=== PATIENT | male | born 1995 | race Caucasian/White ===

== ENCOUNTER 2017-02-06 12:08 | Emergency (ER) | payer OTHER ==
[~2017-02-06] VITALS: Ht 182.9 cm; Wt 70.0 kg
[2017-02-06 12:09] VITALS: BP 150/86; PULSE 88; RESP 16; TEMP 98.5; O2SAT 98
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
[2017-02-06 13:20] LABS: BASOPHIL % 0.3 % (0.0-2.0); EOSINOPHIL # 0.1 TH/MM3 (0-0.4); EOSINOPHIL % 0.8 % (0.0-4.0); HEMATOCRIT 46.3 % (39.0-51.0); HEMO FLAGS DIFF FINAL; LYMPH % 37.8 % (9.0-44.0); LYMPHOCYTE # 3.6 TH/MM3 (1.0-4.8); MEAN CELL VOLUME 86.8 FL (80.0-100.0); MEAN CORPUSCULAR HEMOGLOBIN 29.8 PG (27.0-34.0); MEAN CORPUSCULAR HGB CONC 34.3 % (32.0-36.0); MONO % 8.6 % (0.0-8.0); NEUT % 52.5 % (16.0-70.0); PLATELET COUNT 231 TH/MM3 (150-450); RED BLOOD COUNT 5.34 MIL/MM3 (4.50-5.90); RED CELL DISTRIBUTION WIDTH 12.9 % (11.6-17.2); WHITE BLOOD COUNT 9.6 TH/MM3 (4.0-11.0)
[2017-02-06 13:36] LABS: ANION GAP 6 MEQ/L (5-15); AST (GOT) 14 U/L (15-39); BLOOD UREA NITROGEN 15 MG/DL (7-18); CHLORIDE 109 MEQ/L (98-107); GLOMERULAR FILTRATION RATE 94 ML/MIN (>89); POTASSIUM 3.9 MEQ/L (3.5-5.1); SODIUM (NA) 140 MEQ/L (136-145)
[2017-02-06 13:40] LABS: ALKALINE PHOSPHATASE 64 U/L (45-117); ALT (GPT) 20 U/L (9-52); TOTAL BILIRUBIN ADULT 0.6 MG/DL (0.2-1.0)
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
== END 2017-02-06 15:15 | disposition left against medical advice (07) ==
LOC: NEPD 12:08 → NEPB 15:15
DX: R51 Headache (principal); F32.9 Major depressive disorder, single episode, unspecified
CPT/HCPCS: 80053; 85025; 99283

== ENCOUNTER 2017-03-13 18:29 | Inpatient (IN) | payer OTHER ==
[~2017-03-13] VITALS: Ht 170.2 cm; Wt 66.0 kg
[2017-03-13 18:31] VITALS: BP 145/88; PULSE 96; RESP 20; TEMP 97.6; O2SAT 99
[2017-03-13 19:34] VITALS: BP 134/74; PULSE 68; RESP 18; TEMP 98.4
--- NOTE | 2017-03-13 20:19 | PD ---
HPI Chief Complaint: Suicide Ideation/Attempt Time Seen by Provider: 20:18 Travel History International Travel<30 days: No Contact w/Intl Traveler<30days: No Traveled to known affect area: No History of Present Illness HPI 22-year-old male that presents to the ED for evaluation of suicidal ideation. Patient comes here voluntarily for this. Patient states that he is a chronic history depression and he is to take medications for it was a year ago but he had a lot of side effects of he stopped taking them. He denies any plan. He denies any chest pain or shortness of breath. Other medical issues. No fevers chills or sweats. No allergies to medication. Has not seen anybody for this recently. PFSH Past Medical History Blood Disorders: No Depression: Yes Insomnia: Yes Social History Alcohol Use: No Tobacco Use: No Substance Use: Yes (marijuanna daily, today) Allergies-Medications (Allergen,Severity, Reaction): Coded Allergies: No Known Allergies (Unverified , 03/11/15) Reported Meds & Prescriptions Reported Meds & Active Scripts Active No Active Prescriptions or Reported Medications Review of Systems Except as stated in HPI: all other systems reviewed are Neg Physical Exam Narrative GENERAL: SKIN: Warm and dry. HEAD: Atraumatic. Normocephalic. EYES: Pupils equal and round. No scleral icterus. No injection or drainage. ENT: No nasal bleeding or discharge. Mucous membranes pink and moist. Tongue is midline. No uvula deviation. NECK: Trachea midline. No JVD. CARDIOVASCULAR: Regular rate and rhythm. No murmurs, S3, S4. RESPIRATORY: No accessory muscle use. Clear to auscultation. Breath sounds equal bilaterally. GASTROINTESTINAL: Abdomen soft, non-tender, nondistended. Hepatic and splenic margins not palpable. MUSCULOSKELETAL: Extremities without clubbing, cyanosis, or edema. No obvious deformities. Full range of motion of the upper and lower extremities bilaterally. 2+ pulses bilaterally. NEUROLOGICAL: Awake and alert. No obvious cranial nerve deficits. Motor grossly within normal limits. Five out of 5 muscle strength in the arms and legs. Normal speech. PSYCHIATRIC: Appropriate mood and affect; insight and judgment normal. Data Data Last Documented VS Vital Signs Date Time Temp Pulse Resp B/P Pulse Ox O2 Delivery O2 Flow Rate FiO2 03/13/17 19:34 98.4 68 18 134/74 Room Air 03/13/17 18:31 99 Orders Complete Blood Count With Diff (03/13/17 20:06) Comprehensive Metabolic Panel (03/13/17 20:06) Psych Screen (03/13/17 20:06) Drug Screen, Random Urine (03/13/17 20:06) Alcohol (Ethanol) (03/13/17 20:06) MDM Medical Decision Making Medical Screen Exam Complete: Yes Emergency Medical Condition: Yes Medical Record Reviewed: Yes Differential Diagnosis Depression versus suicidal ideation versus anxiety versus adjustment disorder versus mood disorder versus bipolar disorder versus schizophrenia versus paranoid disorder versus psychosis versus substance abuse versus alcohol abuse versus alcohol induced psychosis versus homicidality addition versus cutting versus personality disorder Narrative Course 22-year-old male that presents to the ED for evaluation of psychiatric illness. No sign of acute medical distress. Labs were drawn. Patient was medically cleared. Okay to be seen by psych. Mental health screening was discussed with the patient. Diagnosis Primary Impression: Depression Qualified Code: F33.1 - Moderate episode of recurrent major depressive disorder Scripts No Active Prescriptions or Reported Meds Jonathan Boggs Mar 13, 2017 20:18
[2017-03-13 21:05] LABS: AUTOMATED NEUTROPHIL # 5.9 TH/MM3 (1.8-7.7); BASOPHIL # 0.1 TH/MM3 (0-0.2); BASOPHIL % 0.5 % (0.0-2.0); EOSINOPHIL # 0.1 TH/MM3 (0-0.4); EOSINOPHIL % 0.9 % (0.0-4.0); HEMATOCRIT 40.8 % (39.0-51.0); HEMO FLAGS DIFF FINAL; LYMPH % 34.7 % (9.0-44.0); LYMPHOCYTE # 3.7 TH/MM3 (1.0-4.8); MEAN CORPUSCULAR HEMOGLOBIN 30.3 PG (27.0-34.0); MEAN CORPUSCULAR HGB CONC 34.4 % (32.0-36.0); MONO % 8.3 % (0.0-8.0); NEUT % 55.6 % (16.0-70.0); PLATELET COUNT 190 TH/MM3 (150-450); RED BLOOD COUNT 4.64 MIL/MM3 (4.50-5.90); RED CELL DISTRIBUTION WIDTH 13.1 % (11.6-17.2); WHITE BLOOD COUNT 10.7 TH/MM3 (4.0-11.0)
[2017-03-13 21:06] LABS: AMPHETAMINE, URINE NEG (NEG); BARBITURATES, URINE NEG (NEG); COCAINE, URINE NEG (NEG)
[2017-03-13 21:22] LABS: ANION GAP 6 MEQ/L (5-15); AST (GOT) 9 U/L (15-39); BICARBONATE 26.6 MEQ/L (21.0-32.0); BLOOD UREA NITROGEN 14 MG/DL (7-18); CHLORIDE 106 MEQ/L (98-107); GLOMERULAR FILTRATION RATE 87 ML/MIN (>89); POTASSIUM 3.7 MEQ/L (3.5-5.1); SODIUM (NA) 139 MEQ/L (136-145)
[2017-03-13 21:24] LABS: ALT (GPT) 14 U/L (9-52)
[2017-03-13 21:25] LABS: ALKALINE PHOSPHATASE 54 U/L (45-117); TOTAL BILIRUBIN ADULT 0.8 MG/DL (0.2-1.0)
[2017-03-13 22:14] VITALS: BP 138/83; PULSE 63; RESP 18; TEMP 98; O2SAT 100
[2017-03-14 02:04] VITALS: BP 119/63; PULSE 59; RESP 18; O2SAT 99
[2017-03-14] MEDS ORDERED: ALUMINUM/MAGNESIUM/SIMETH 30 ML CUP PO PRN (05:15)
[2017-03-14] MEDS ORDERED: LORazepam 2 MG/ML VIAL IM PRN (05:15)
[2017-03-14] MEDS ORDERED: MAGNESIUM HYDROXIDE SUSP 30 ML CUP PO PRN (05:15)
[2017-03-14] MEDS ORDERED: ACETAMINOPHEN 325 MG TAB PO PRN (05:15)
[2017-03-14] MEDS: LORazepam 1 MG TAB PO PRN ×3 (05:58→23:39)
[2017-03-14 06:19] VITALS: BP 140/71; PULSE 93; RESP 18; TEMP 97.7; O2SAT 97
[2017-03-14 14:21] LABS: FREE T4 1.16 NG/DL (0.76-1.46)
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
[2017-03-15 06:21] VITALS: BP 128/67; PULSE 68; RESP 18; TEMP 99.3; O2SAT 98
[2017-03-15 12:41] LABS: HDL CHOLESTEROL 60.5 MG/DL (40.0-60.0); LDL CHOLESTEROL 80 MG/DL (0-99)
--- NOTE | 2017-03-15 13:10 | EKG ---
Date Performed: 03/14/2017 Time Performed: 13:57:59 PTAGE: 22 years EKG: ATRIAL FIBRILLATION MODERATE INTRAVENTRICULAR CONDUCTION DELAY ABNORMAL RHYTHM ECG NO PREVIOUS TRACING DOCTOR: Zander Cisneros Interpretating Date/Time 03/15/2017 13:09:26
[2017-03-15] MEDS: LORazepam 1 MG TAB PO SCH ×2 (13:14→21:13)
[2017-03-15] MEDS: ESCITALOPRAM OXALATE 10 MG TAB PO SCH (13:14)
[2017-03-15 15:01] LABS: HEMOGLOBIN A1b 1.4 %; HEMOGLOBIN Ao 85.9 %; HEMOGLOBIN LA1C 2.1 %; HEMOGLOBIN P3 3.6 %
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
--- NOTE | 2017-03-15 16:10 | HHI.PYPN ---
Subjective Remarks This is a request for second opinion. Patient was seen, admission note reviewed , case discussed with nursing. Patient claims his mother told him to malinger that he had suicidal thoughts. Poor insight into admission. He does admit to depressed mood history of psychotropic medications. Today, he denies suicidal ideation intent or plan. Guarded, vague Objective Alert: Yes [place]: Person, Place, Date, Situation Mood: Depressed Affect: Restricted Memory Intact: Immediate (not formally tested) Hallucinations: Other (denies) Delusions: No Delusion Type: Other (denies) Suicidal: Ideation (denies) Homicidal: Ideation (denies) Insight/Judgment Poor Labs Test 03/15/17 11:54 Hemoglobin A1c 5.2 % Triglycerides Level 48 MG/DL Cholesterol Level 150 MG/DL LDL Cholesterol 80 MG/DL HDL Cholesterol 60.5 MG/DL Cholesterol/HDL Ratio 2.47 RATIO Vitals/IOs Vital Signs Date Time Temp Pulse Resp B/P Pulse Ox O2 Delivery O2 Flow Rate FiO2 03/15/17 06:21 99.3 68 18 128/67 98 03/14/17 02:04 Room Air Assessment & Plan Problem List: (1) Major depressive disorder, recurrent severe without psychotic features ICD Code: F33.2 Assessment & Plan I agree with first opinion to continue petition, criteria include suicidal ideation Justification for Cont. Inpt. Patient would decompensate in a less restrictive setting Ernesto Myles DO Mar 15, 2017 16:10
[2017-03-15 17:00] VITALS: BP 152/70; PULSE 57; RESP 18; TEMP 97.8; O2SAT 97
[2017-03-16 05:53] VITALS: BP 138/74; PULSE 69; RESP 16; TEMP 99.2; O2SAT 97
[2017-03-16] MEDS: LORazepam 1 MG TAB PO SCH ×3 (05:58→21:10)
[2017-03-16] MEDS: ESCITALOPRAM OXALATE 10 MG TAB PO SCH (09:25)
[2017-03-16 16:59] VITALS: BP 144/74; PULSE 64; RESP 18; TEMP 98.1; O2SAT 96
[2017-03-17] MEDS: LORazepam 1 MG TAB PO PRN ×2 (00:42→13:28)
[2017-03-17 05:32] VITALS: BP 130/95; PULSE 65; RESP 18; TEMP 98.9; O2SAT 95
[2017-03-17] MEDS: LORazepam 1 MG TAB PO SCH ×3 (05:55→20:44)
[2017-03-17] MEDS: ESCITALOPRAM OXALATE 10 MG TAB PO SCH (08:30)
[2017-03-17 10:03] LABS: RAPID PLASMA REAGIN SCREEN NON-REACTIVE (NON-REACTVE)
[2017-03-17 15:38] VITALS: BP 153/70; PULSE 80; RESP 18; TEMP 99.3; O2SAT 95
[2017-03-17 15:48] LABS: ANA SCREEN NEG (NEG)
[2017-03-17] MEDS: DIVALPROEX SODIUM E.R. 500 MG TAB PO SCH (20:44)
[2017-03-18] MEDS: LORazepam 1 MG TAB PO SCH ×3 (05:00→21:12)
[2017-03-18 06:22] VITALS: BP 141/69; PULSE 71; RESP 18; TEMP 98.4; O2SAT 97
[2017-03-18] MEDS: ESCITALOPRAM OXALATE 10 MG TAB PO SCH (08:52)
[2017-03-18 18:18] VITALS: BP 138/79; PULSE 79; RESP 17; TEMP 98.1; O2SAT 79
[2017-03-18] MEDS: DIVALPROEX SODIUM E.R. 500 MG TAB PO SCH (21:12)
[2017-03-19] MEDS: LORazepam 1 MG TAB PO SCH ×3 (05:21→20:29)
[2017-03-19 05:55] VITALS: BP 131/74; PULSE 59; RESP 18; TEMP 98.5; O2SAT 98
[2017-03-19] MEDS: ESCITALOPRAM OXALATE 10 MG TAB PO SCH (08:25)
[2017-03-19 20:00] VITALS: BP 129/77; PULSE 71; RESP 18; TEMP 97.8; O2SAT 97
[2017-03-19] MEDS: DIVALPROEX SODIUM E.R. 500 MG TAB PO SCH (20:17)
[2017-03-20] MEDS: LORazepam 1 MG TAB PO PRN (00:45)
[2017-03-20] MEDS: LORazepam 1 MG TAB PO SCH (04:10)
[2017-03-20 06:04] VITALS: BP 121/81; PULSE 93; RESP 18; TEMP 98.2; O2SAT 97
[2017-03-20] MEDS: ESCITALOPRAM OXALATE 10 MG TAB PO SCH (09:23)
[2017-03-20] MEDS ORDERED: ESCI10TA PO (09:57)
[2017-03-20] MEDS ORDERED: DEPA500T3 PO (09:57)
[2017-03-20] MEDS ORDERED: LORA-474 PO (09:57)
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
== END 2017-03-20 12:30 | disposition home or self-care (01) | DRG 885 ==
LOC: NEPJ 18:29 → NEDA 03-14 04:58 → H260 03-14 05:53 → H270 03-17 16:35
PROVIDERS: ADMIT Psychiatry & Neurology Psychiatry; ATTEND Psychiatry & Neurology Psychiatry
DX: F33.2 Major depressive disorder, recurrent severe without psychotic features (principal); R45.851 Suicidal ideations; F41.1 Generalized anxiety disorder; F12.10 Cannabis abuse, uncomplicated; F40.10 Social phobia, unspecified; G47.00 Insomnia, unspecified; Z87.828 Personal history of other (healed) physical injury and trauma; R41.89 Other symptoms and signs involving cognitive functions and awareness
CPT/HCPCS: 70450; 80053; 80061; 80307; 82607; 82746; 83036; 84439; 84443; 85025; 85652; 86038; 86592; 93005